=== PATIENT | male | born 2005 | race Caucasian/White ===

== ENCOUNTER 2024-02-04 23:23 | Emergency (ER) | payer BC, SELFPAY ==
[2024-02-04 23:34] VITALS: BP 136/82; PULSE 100; RESP 18; TEMP 36.4; O2SAT 99; BMI 30.3
[2024-02-05 00:05] LABS: Strep A DNA Probe* NOT DETECTED (Not Detectd)
[2024-02-05 00:19] LABS: PCR FLU A Negative PCR FLU A (Negative); PCR FLU B Negative PCR FLU B (Negative); PCR RSV Negative PCR RSV (Negative); SARS PCR* Negative SARS-CoV-2 (Negative)
[2024-02-05] MEDS: IPRAT-ALBUT 0.5-2.5 MG/3 ML NEB 1 NEB IH (00:25)
[2024-02-05] MEDS: predniSONE 10 MG TABLET PO (00:25)
--- NOTE | 2024-02-05 01:08 | ED_ITS ---
HPI - General Adult General Chief complaint: Cough Stated complaint: cough Time Seen by Provider: 02/04/24 23:53 Source: patient Mode of arrival: ambulatory Limitations: no limitations History of Present Illness HPI narrative: 18-year-old male presents the emergency department for evaluation of cough for the past 2 and half weeks. Originally started with headache, body aches and cough with negative home COVID test. Mother diagnosed with influenza around the same time, he assumed that this was his illness as well. He states that his symptoms improved after a few days but then for the past week, the cough has been returning. He has a little bit of pain in the lower right lateral rib with deep breath. There is no severe shortness of breath. No fever. Cough is nonproductive. No limitations of activities. Cough is more of a nuisance. He has not tried taking any cough syrups recently. No hemoptysis. No cardiac symptoms, dizziness. Nonsmoker. ROS notable for the cough as described above, but also some vague sore throat, bilateral ear pressure and lower lateral right rib pain as described above, otherwise denies times 12 systems. Past medical history benign, no major long- term health problems, no long-term medications. Allergy to penicillin. Nonsmoker. Related Data Previous Rx's Medication Instructions Recorded albuterol sulfate 90 mcg/actuation 2 inh inhalation Q4H PRN cough #1 02/05/24 breath activated powder inhaler ea prednisone 20 mg tablet 20 mg PO DAILY #5 tabs 02/05/24 Allergies Allergy/AdvReac Type Severity Reaction Status Date / Time amoxicillin Allergy Verified 02/04/24 23:38 PFSH PFS Social History Non-prescribed substance use: denies use Exam Narrative: Exam Narrative: Pulse at the time of my exam 80s. Const: Vital Signs, click to edit/add: Vital Signs - 24 hr 02/04/24 23:34 Temperature 97.5 F L Pulse Rate [Pulse Oximeter] 100 Respiratory Rate 18 Blood Pressure [Ri ght Upper Arm] 136/82 Pulse Oximetry 99 Documenting provider has reviewed patient's vital signs: yes Common normals: no apparent distress General appearance: cooperative, comfortable and well kempt HENMT: Common normals: normocephalic and TM's normal bilaterally Head and scalp: normocephalic Face and sinus: normal facial exam Tympanic membrane: TM's normal bilaterally Mouth: oral and palatal mucosa normal Throat: posterior oropharynx normal Eye: Common normals: conjunctivae normal General eye: normal appearance of both eyes Conjunctiva: conjunctiva(e) normal Neck & C-Spine: Common normals: full ROM and no lymphadenopathy Resp: Common normals: normal respiratory effort and no use of accessory muscles Effort & inspection: able to speak in complete sentences Other: Excellent air movement throughout with some mild end-expiratory wheezing bilate ral. No prolongation of expiration. No crackles. No rhonchi. Cardio: Common normals: regular rate, regular rhythm, S1 normal heart sound, S2 normal heart sound and no murmurs Rate: regular rate Rhythm: regular rhythm Heart sounds: S1 normal and S2 normal Extremity: Common normals: normal to inspection and normal capillary refill Psych: Appearance: well kempt Attitude: engaged Activity/motor behavior: appropriate eye contact Insight: insight good Judgement: judgment good Skin: Common normals: no rashes or lesions noted General skin exam: no rashes or lesions noted Course Course ED Course: Healthy 18-year-old male with persistent mild cough. No features of severe dyspnea, hemoptysis, productive cough, fevers or major illness. Vitals reviewed. Initially tachycardic on presentation is improved with 30 minutes of rest prior to my exam. No hypoxia. Normal respiratory rate. No exertional type symptoms. Suspect postviral cough, likely some underlying reactive airway disease. I do not see any indications for a chest x-ray. I do not think blood work will be helpful. Viral swabs are reviewed and negative. Patient will be given a dose of prednisone and a DuoNeb. We discussed alarm symptoms that would warrant ED follow-up. Symptoms are likely to last about 3-4 weeks. Primary care follow-up if not improving in 3 weeks. Recommend 5 days of oral prednisone and albuterol inhaler as needed. Okay to use [id number] cough drops and cough suppressants if he finds them helpful. Vital Signs Vital signs: Initial Vital Signs Temperature 97.5 F L 02/04/24 23:34 Temperature Source Temporal Artery Scan 02/04/24 23:34 Pulse Rate 100 02/04/24 23:34 Respiratory Rate 18 02/04/24 23:34 Blood Pressure 136/82 02/04/24 23:34 Blood Pressure Mean 100 02/04/24 23:34 Blood Pressure Position Sitting 02/04/24 23:34 Pulse Oximetry 99 02/04/24 23:34 Vital Signs Temperature 97.5 F L 02/04/24 23:34 Pulse Rate 100 02/04/24 23:34 Respiratory Rate 18 02/04/24 23:34 Blood Pressure 136/82 02/04/24 23:34 Pulse Oximetry 99 02/04/24 23:34 Temperature 97.5 F L 02/04/24 23:34 Pulse Rate 100 02/04/24 23:34 Respiratory Rate 18 02/04/24 23:34 Blood Pressure 136/82 02/04/24 23:34 Pulse Oximetry 99 02/04/24 23:34 Medications Administered Medications: Discontinued Medications Generic Name Dose Route Start Last Admin Trade Name Freq PRN Reason Stop Dose Admin Albuterol/Ipratropium 1 neb 02/05/24 00:19 02/05/24 00:25 Iprat-Albut 0.5-2.5 Mg/3 Ml Neb IH 02/05/24 00:20 1 neb ONCE ONE Administration Prednisone 10 mg 02/05/24 00:24 02/05/24 00:25 Prednisone 10 Mg Tablet PO 02/05/24 00:25 10 mg ONCE ONE Administration Medical Decision Making Lab Data Lab results reviewed: Yes I reviewed the patient's lab results Lab results narrative: Negative, as expected Labs: Lab Results 02/04/24 Range/Units 23:36 SARS-CoV-2 (PCR) Negative SARS-CoV-2 (Negative) Influenza Type A (PCR) Negative PCR FLU A (Negative) Influenza Type B (PCR) Negative PCR FLU B (Negative) RSV (PCR) Negative PCR RSV (Negative) Group A Strep DNA NOT DETECTED (Not Detectd) Discharge Plan Discharge Clinical Impression: Mild reactive airways disease Patient Disposition: Home w/ Parent or Adult Condition: Stable Instructions: Wheezing (ED) Additional Instructions: As we discussed, your cough and the wheezing that I can hear on exam are from reactive airway disease. This is an inflammation following a respiratory illness that can last up to 8 weeks. I suspect that you had influenza a couple of weeks ago, as we were seeing many cases around that time and your describes symptoms are fairly consistent. Sometimes people that are susceptible to this postviral inflammation will get an ongoing nonproductive cough and wheezing. This is from the inflammation that the original virus caused. There are no sounds or signs of pneumonia. Your oxygen levels are perfect. To help treat the inflammation, I recommend a short course of prednisone. You were given a ve ry small dose here in the emergency department, as if given late at night it can cause insomnia. Starting Thursday afternoon, I would like for you to take 1 pill daily for a total of 5 days. I will also prescribe an inhaler. Use this every morning and night for 1 week to help prevent cough fits, but also up to every 2 hours as needed for cough spells. You will only be on the pills for 5 days but you may continue using the inhaler for the next month as needed. For the pain in your side, the recommend Tylenol 1000 mg every 6 hours as needed and or ibuprofen 600 mg every 6 hours as needed. Come back to the emergency department if you have very high fevers combined with severe shortness of breath, coughing up blood or other emergent symptoms. If your cough fails to improve in 4 more weeks, follow-up in the primary care clinic for further testing and or prescription of inhaled steroids. Activity Level: Activity as Tolerated Discharge Diet: Regular Prescriptions: New prednisone 20 mg tablet 20 mg PO DAILY Qty: 5 0RF albuterol sulfate 90 mcg/actuation aerosol powdr breath activated 2 inh inhalation Q4H PRN (Reason: cough) Qty: 1 1RF Follow Up/Referrals: Emily Gatica MD [Staff Physician] - Stand Alone Forms: [employer] Info Instructions
== END 2024-02-05 00:46 | disposition home or self-care (01) ==
LOC: ED 02-05 00:37
PROVIDERS: Student in an Organized Health Care Education/Training Program; Emergency Provider Family Medicine
DX: J45.909 Unspecified asthma, uncomplicated (principal)
CPT/HCPCS: 87631; 87651; 94640; 99283; J7512